=== PATIENT | female | born 2005 | race Caucasian/White ===

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

== ENCOUNTER 2023-05-24 16:45 | Emergency (ER) | payer OTHER, SELFPAY ==
--- NOTE | ~2023-05-24 | CT_ITS ---
EXAMINATION: CT abdomen pelvis w con INDICATION: Epigastric and right upper quadrant pain TECHNIQUE: Computed tomographic images of the abdomen and pelvis were obtained after the administrati on of 100 cc of Omnipaque 350 intravenous contrast. The dose-length product (DLP) was 1496.43 mGy-cm. Automated exposure control and iterative reconstruction technique were employed. COMPARISON: 11/13/2022 FINDINGS: Minimal dependent atelectasis is present in the lung bases. The heart size is normal. The l iver, spleen, gallbladder, and adrenal glands are normal. There is subtle inflammatory change in the tail of the pancreas. Cysts of the kidneys measure up to 6 mm on the left. No pathologically enlarged abdominal or pelvic lymph nodes are identified. No free intraperitoneal gas or evidence of bowel obs truction. The visualized osseous structures are unremarkable. IMPRESSION: 1. Subtle inflammatory change near the tail of the pancreas which could reflect pancreatitis but is o f unclear significance given normal lipase. Reviewed, dictated and finalized at location F. IMPRESSION: 1. Subtle inflammatory change near the tail of the pancreas which could reflect pancreatitis but is of unclear significance given normal lipase.
[2023-05-24 16:47] VITALS: BP 152/91; PULSE 79; RESP 18; TEMP 35.8; O2SAT 100
--- NOTE | 2023-05-24 16:58 | ED.ABDPAIN ---
HPI - Abdominal Pain General Chief Complaint: Abdominal Pain <NIVIA Escamilla Last Filed: 05/24/23 17:03> Stated Complaint: ABDOMEN PAIN <NIVIA Escamilla Last Filed: 05/24/23 17:03> Time Seen by Provider: 05/24/23 16:58 <NIVIA Escamilla Last Filed: 05/24/23 17:03> Focused HPI: Patient is a 17 y/o female who presents to the ED with c/o abdominal pain. Patient reports having persistent and worsening epigastric abdominal pain, radiates out to her upper abdomen bilaterally. She has tried taking omeprazole and Midol w/o relief. She has not taken anything for pain today. Reports decreased appetite, nausea, diarrhea. Denies vomiting, rectal bleeding, melena, fevers, urinary complaints. GENERAL: Well-appearing, morbidly obese with BMI 40.0, and in no acute distress. HEAD: Normocephalic, atraumatic. CHEST: Clear to auscultation. ?No respiratory distress. HEART: Regular rate and rhythm.? ABD: TTP in epigastric region and RUQ NEURO: ?Alert and oriented x3. Patient screened in triage and initial orders placed.? ?Additional care and disposition to be based upon?diagnostic testing and treatment. <NIVIA Escamilla Last Filed: 05/24/23 17:03> Source: patient <NIVIA Escamilla Last Filed: 05/24/23 17:03> Mode of arrival: ambulatory <NIVIA Escamilla Last Filed: 05/24/23 17:03> Limitations: no limitations <NIVIA Escamilla Last Filed: 05/24/23 17:03> Related Data Home Medications: Home Medications Medication Instructions Recorded Confirmed norgestimate-ethinyl estradiol tablet 03/16/21 03/16/21 0.18 mg/0.215mg/0.25mg-35 mcg(28)tablet (Tri-Sprintec (28)) <NIVIA Escamilla Last Filed: 05/24/23 17:03> Allergies/Adverse Reactions: Allergies Allergy/AdvReac Type Severity Reaction Status Date / Time amoxicillin Allergy Diarrhea Verified 11/12/22 19:39 <Sierra Hinkle PA-C - Last Filed: 05/24/23 17:03> Review of Systems Review of Systems: CONSTITUTIONAL: Denies fever GASTROINTESTINAL: Reports abdominal pain, nausea, and diarrhea. Denies vomiting GENITOURINARY: Denies dysuria or hematuria. <Lakshmi Vasquez PA-C - Last Filed: 05/24/23 19:57> All systems reviewed & are unremarkable except as noted in HPI and below <Lakshmi Vasquez PA-C - Last Filed: 05/24/23 19:57> PMFSH Past Medical History Medical History: Medical History (Updated 05/24/23 @ 19:44 by Lakshmi Vasquez PA-C) Anxiety Depression <Sierra Hinkle PA-C - Last Filed: 05/24/23 17:03> Surgical History Surgical History: Surgical History History of removal of ovarian cyst History of tympanostomy tube placement <Sierra Hinkle PA-C - Last Filed: 05/24/23 17:03> Family History Family History: Family History Mother Cerebrovascular accident <Sierra Hinkle PA-C - Last Filed: 05/24/23 17:03> Social History Social History: Social History Smoking status: Never smoker Alcohol intake: never Substance use: never Substance use type: does not use Living arrangements: with family Gender identity (if verbalized by the patient): Female <Sierra Hinkle PA-C - Last Filed: 05/24/23 17:03> Exam Narrative: GENERAL: Well-appearing, well-nourished, and in no acute distress. HEAD: Normocephalic, atraumatic. EYES: EOMI. CHEST: Clear to auscultation. No respiratory distress. No wheezes rales or rhonchi HEART: Regular rate and rhythm. No murmur heard. Normal peripheral pulses. ABDOMEN: Soft, nondistended, normal active bowel sounds. Mild tenderness to palpation in the epigastrium, without guarding EXTREMITIES: Normal range of motion. No edema. SKIN: Warm, dry, no rash. NE
[2023-05-24] MEDS: BELLADONNA ALK/PHENOB ELIX 10 ML, MAG HYDROX/ALUMINUM HYD/SIMETH 30 ML, LIDOCAINE HCL 2... PO (17:21)
[2023-05-24] MEDS: ACETAMINOPHEN 500 MG TABLET 1000 MG PO (17:21)
[2023-05-24] MEDS: ONDANSETRON INJ 4 MG/2 ML VIAL IV PUSH (17:21)
[2023-05-24 17:30] LABS: Basophils Percent Auto 0.4 % (0.2-1.2); Eosinophils Absolute Auto 0.1 K/mm3 (0-0.3); Eosinophils Percent Auto 1.2 % (0-4.4); Hematocrit 40.5 % (37.0-47.0); Hemoglobin 13.8 g/dL (12.0-15.0); Immature Granulocyte Absolute 0.04 K/mm3 (0.00-0.031); Immature Granulocyte Percent A 0.4 % (0-0.5); Lymphocytes Absolute Auto 2.61 K/mm3 (0.9-3.2); Lymphocytes Percent Auto 26.6 % (18.3-44.2); Mean Corpuscular HGB Conc 34.1 g/dl (32-36); Mean Corpuscular Hemoglobin 29.5 pg (26-34); Mean Corpuscular Volume 86.5 fl (80-100); Monocytes Absolute Auto 0.7 K/mm3 (0.1-0.6); Monocytes Percent Auto 6.7 % (2.6-8.5); Neutrophils Absolute Auto 6.4 K/mm3 (1.3-6.7); Neutrophils Percent Auto 64.7 % (45.5-73.1); Platelet Count Result 246 k/mm3 (150-375); Red Blood Count 4.68 M/mm3 (4.2-5.4); Red Cell Distribution Width 13.5 % (11.5-14.5); White Blood Count 9.8 K/mm3 (4.5-10.0)
[2023-05-24 17:46] LABS: Alanine Aminotransferase 33 U/L (6-35); Albumin Level 4.5 g/dL (3.7-5.6); Alkaline Phosphatase 89 U/L (45-116); Anion Gap 9 mmol/L (8-16); Aspartate Amino Transferase 33 U/L (14-36); Bilirubin,Total 0.8 mg/dL (0.2-1.3); Blood Urea Nitrogen 9 mg/dL (8-21); Calcium 9.8 mg/dL (8.9-10.7); Carbon Dioxide 27 mmol/L (22-30); Chloride 105 mmol/L (98-107); Estimated CRCL calculation 121 ml/min; Estimated Glomerular Filt Rate > 60; Glucose 81 mg/dL (65-110); Lipase 187 U/L (23-300); Potassium 3.6 mmol/L (3.4-5.0); Sodium 141 mmol/L (134-143)
[2023-05-24 17:51] LABS: Appearance Urine Cloudy (Clear); Bacteria Urine 1+ /hpf; Bilirubin Urine Negative (Negative); Blood Urine Negative (Negative); Color Urine Dark Yellow (Yellow); Glucose Urine UA Negative (Negative); Ketones Urine Trace mg/dL (Negative); Leukocyte Esterase Ur 1+ LEU/UL (Negative); Nitrate Urine Negative (Negative); Non Pathogenic Casts 0-2; Protein Urine Negative (Negative); RBC Urine 0-2 /hpf (0-2); Specific Grav Ur 1.022 (1.001-1.035); Squamous Epithelial Cell Urine Moderate /hpf (Few); pH Urine 5.5 (5.0-9.0)
[2023-05-24 18:03] LABS: Add Urine Microscopic? YES
--- NOTE | 2023-05-24 19:23 | PC.NURSE ---
this rn assumed care of patient. this rn took patient report from STEPHANIE Galaviz.
[2023-05-24 19:43] VITALS: TEMP 36.9
[2023-05-24 20:18] VITALS: BP 117/67; PULSE 97; RESP 18; O2SAT 99
== END 2023-05-24 20:19 | disposition home or self-care (01) ==
PROVIDERS: Physician Assistant; Emergency Provider Physician Assistant; PCP Family Medicine
DX: K85.90 Acute pancreatitis without necrosis or infection, unspecified (principal); R10.13 Epigastric pain; R82.81 Pyuria; R82.71 Bacteriuria
CPT/HCPCS: 36415; 74177; 80053; 81001; 81025; 83690; 85025; 87086; 87088; 96374; 99284; A9270; J2405; Q9967

== ENCOUNTER 2023-05-25 00:59 | Emergency (ER) | payer OTHER, SELFPAY ==
[2023-05-25 01:05] VITALS: BP 135/78; PULSE 97; RESP 16; TEMP 36.1; O2SAT 98
[2023-05-25 02:17] VITALS: BP 142/102; PULSE 102; RESP 16; TEMP 36.6; O2SAT 96
[2023-05-25 02:39] LABS: Basophils Percent Auto 0.4 % (0.2-1.2); Eosinophils Absolute Auto 0.1 K/mm3 (0-0.3); Eosinophils Percent Auto 1.1 % (0-4.4); Hematocrit 41.8 % (37.0-47.0); Hemoglobin 13.8 g/dL (12.0-15.0); Immature Granulocyte Absolute 0.04 K/mm3 (0.00-0.031); Immature Granulocyte Percent A 0.4 % (0-0.5); Lymphocytes Absolute Auto 2.39 K/mm3 (0.9-3.2); Mean Corpuscular Hemoglobin 28.5 pg (26-34); Mean Corpuscular Volume 86.2 fl (80-100); Mean Platelet Volume 8.9 fl (7.4-10.4); Monocytes Absolute Auto 0.6 K/mm3 (0.1-0.6); Monocytes Percent Auto 6.6 % (2.6-8.5); Neutrophils Absolute Auto 6.4 K/mm3 (1.3-6.7); Neutrophils Percent Auto 66.5 % (45.5-73.1); Platelet Count Result 251 k/mm3 (150-375); Red Blood Count 4.85 M/mm3 (4.2-5.4); Red Cell Distribution Width 13.2 % (11.5-14.5); White Blood Count 9.6 K/mm3 (4.5-10.0)
[2023-05-25 02:44] LABS: Alanine Aminotransferase 34 U/L (6-35); Albumin Level 4.6 g/dL (3.7-5.6); Alkaline Phosphatase 85 U/L (45-116); Anion Gap 11 mmol/L (8-16); Aspartate Amino Transferase 35 U/L (14-36); Bilirubin,Total 0.9 mg/dL (0.2-1.3); Blood Urea Nitrogen 9 mg/dL (8-21); Calcium 9.9 mg/dL (8.9-10.7); Carbon Dioxide 20 mmol/L (22-30); Chloride 108 mmol/L (98-107); Estimated CRCL calculation 143 ml/min; Estimated Glomerular Filt Rate > 60; Glucose 88 mg/dL (65-110); Lipase 169 U/L (23-300); Potassium 3.9 mmol/L (3.4-5.0); Sodium 139 mmol/L (134-143)
--- NOTE | 2023-05-25 03:14 | ED.ABDPAIN ---
HPI - Abdominal Pain General Chief Complaint: Abdominal Pain Stated Complaint: vomiting, here for abd pain earlier Time Seen by Provider: 05/25/23 02:19 History of Present Illness HPI narrative: 17-year-old female presenting to the emergency department for evaluation of nausea and vomiting. Patient has been having 4 days of abdominal pain and was evaluated in the emergency department earlier in the day. After getting home patient did have onset of nausea and vomiting. Related Data Home Medications Medication Instructions Recorded Confirmed norgestimate-ethinyl estradiol tablet 03/16/21 03/16/21 0.18 mg/0.215mg/0.25mg-35 mcg(28)tablet (Tri-Sprintec (28)) Allergies Allergy/AdvReac Type Severity Reaction Status Date / Time amoxicillin Allergy Diarrhea Verified 11/12/22 19:39 Review of Systems Review of Systems: All systems reviewed & are unremarkable except as noted in HPI and below PMFSH Past Medical History Medical History (Updated 05/26/23 @ 00:01 by Myesha Marrero) Anxiety Depression Surgical History Surgical History History of removal of ovarian cyst History of tympanostomy tube placement Family History Family History Mother Cerebrovascular accident Social History Social History Smoking status: Never smoker Alcohol intake: never Substance use: never Substance use type: does not use Living arrangements: with family Gender identity (if verbalized by the patient): Female Exam Narrative: APPEARANCE: Well appearing, no pain, no distress, well-nourished. HEAD: normocephalic, atraumatic. EYES: PERRLA/EOMI, conjunctivae clear. NOSE: Normal no drainage EARS:TMS clear with good light reflex. THROAT: Pharynx clear, no exudate. NECK: Supple. No adenopathy, no masses. RESPIRATORY: Airway patent, respirations nonlabored. Clear to auscultation bilaterally, no rales, rhonchi, wheezing. CARDIOVASCULAR: Regular rate and rhythm without murmurs rubs or gallops. ABDOMINAL: Soft, nontender, nondistended, normal bowel sounds MUSCULOSKELETAL: Moves all extremities. Strength/ROM intact, No edema, No calf tenderness. NEURO: Alert. Cranial nerves II through XII intact. Good gait. Good coordination SKIN: Warm, dry. Normal Color PSYCHIATRIC: Normal affect/mood. Course Course Emergency Course: Patient felt improved treatment was provided medications for nausea control per home Vital Signs Vital signs: Vital Signs Temperature 97.0 F L 05/25/23 01:05 Pulse Rate 97 05/25/23 01:05 Respiratory Rate 16 05/25/23 01:05 Blood Pressure 135/78 05/25/23 01:05 Pulse Oximetry 98 05/25/23 01:05 Oxygen Delivery Room Air 05/25/23 01:05 Temperature 97.8 F 05/25/23 02:17 Pulse Rate 77 05/25/23 04:39 Respiratory Rate 15 05/25/23 04:39 Blood Pressure 140/76 05/25/23 04:39 Pulse Oximetry 100 05/25/23 04:39 Oxygen Delivery Room Air 05/25/23 01:05 MDM - Abdominal Pain MDM Narrative Medical decision making narrative: 17-year-old female presented emergency department for evaluation of persistent nausea and vomiting. Patient had repeat labs with no change. Patient did feel improved with treatment and on re-examination states that once again she feels fine. Patient family were updated on the results of the workup and importance of close follow-up with primary care physician. Patient was provided medications for nausea and vomiting. Differential Diagnosis Differential diagnosis: Likely abdominal pain, acute appendicitis, constipation, diverticulitis, gastroenteritis, pancreatitis and small bowel obstruction Lab Data Attestation: I reviewed the patient's lab results. 05/25/23 02:25 05/25/23 02:25 Labs: Lab Results 05/25/23 Range/Units 02:25 WBC 9.6
[2023-05-25] MEDS: SODIUM CHLORIDE 0.9% IV 1,000 ML 999 ML IV CONT (03:21)
[2023-05-25] MEDS: ONDANSETRON INJ 4 MG/2 ML VIAL IV PUSH (03:22)
[2023-05-25] MEDS: HYDROmorphone HCL INJ (*CRX) 1 MG/ML SYR 0.5 MG IV PUSH (03:22)
[2023-05-25] MEDS: METOCLOPRAMIDE HCL INJ 10 MG/2 ML VIAL IV PUSH (04:36)
[2023-05-25 04:39] VITALS: BP 140/76; PULSE 77; RESP 15; O2SAT 100
== END 2023-05-25 04:40 | disposition home or self-care (01) ==
PROVIDERS: Emergency Provider Emergency Medicine; PCP Family Medicine
DX: R11.2 Nausea with vomiting, unspecified (principal)
CPT/HCPCS: 36415; 80053; 83690; 85025; 96361; 96374; 96375; 99284; J1170; J2405; J2765; J7030

== ENCOUNTER 2023-11-19 09:24 | Emergency (ER) | payer OTHER, SELFPAY ==
--- NOTE | ~2023-11-19 | XR_ITS ---
EXAMINATION: XR chest 2V DATE: 11/19/2023 10:15 INDICATION: Shortness of breath TECHNIQUE: PA and lateral views of the chest were obtained. COMPARISON: None FINDINGS: The lungs are clear with no focal airspace opacities, pulmonary edema, pleural effusion or pneumothor ax. The cardiomediastinal silhouette is normal. Visualized bones and soft tissues are unremarkable. IMPRESSION: 1. No acute cardiopulmonary disease. Reviewed, dictated and finalized at location B.
[2023-11-19 09:26] VITALS: BP 142/92; PULSE 72; RESP 18; TEMP 36.7; O2SAT 99
[2023-11-19 10:14] LABS: Influenza A QL RT-PCR Negative (Negative); Influenza B QL RT-PCR Negative (Negative); RSV RNA, RT-PCR Negative (Negative); SARS-CoV-2 RNA PCR Negative (Negative)
--- NOTE | 2023-11-19 11:46 | ED.GENADULT ---
HPI - General Adult General Chief complaint: Shortness of Breath/Dyspnea Stated complaint: SOB Time Seen by Provider: 11/19/23 10:54 History of Present Illness HPI narrative: 18-year-old female presenting to the emergency department for evaluation for epigastric pressure and associated shortness of breath. Patient states she does have history of asthma and does smoke marijuana. Patient states she has not smoked since the symptoms started this morning. Related Data Home Medications Medication Instructions Recorded Confirmed norgestimate-ethinyl estradiol tablet 03/16/21 03/16/21 0.18 mg/0.215mg/0.25mg-35 mcg(28)tablet (Tri-Sprintec (28)) Allergies Allergy/AdvReac Type Severity Reaction Status Date / Time amoxicillin AdvReac Diarrhea Verified 11/19/23 11:48 Review of Systems Review of Systems: All systems reviewed & are unremarkable except as noted in HPI and below PMFSH Past Medical History Medical History (Updated 11/19/23 @ 12:35 by Bryson Palacios MD) Anxiety Depression Surgical History Surgical History History of removal of ovarian cyst History of tympanostomy tube placement Family History Family History Mother Cerebrovascular accident Social History Social History Smoking status: Never smoker Alcohol intake: never Substance use: never Substance use type: does not use Living arrangements: with family Gender identity (if verbalized by the patient): Female Exam Narrative: APPEARANCE: Well appearing, no pain, no distress, well-nourished. HEAD: normocephalic, atraumatic. EYES: PERRLA/EOMI, conjunctivae clear. NOSE: Normal no drainage EARS:TMS clear with good light reflex. THROAT: Pharynx clear, no exudate. NECK: Supple. No adenopathy, no masses. RESPIRATORY: Airway patent, respirations nonlabored. Clear to auscultation bilaterally, no rales, rhonchi, wheezing. CARDIOVASCULAR: Regular rate and rhythm without murmurs rubs or gallops. ABDOMINAL: Epigastric tenderness to palpation MUSCULOSKELETAL: Moves all extremities. Strength/ROM intact, No edema, No calf tenderness. NEURO: Alert. Cranial nerves II through XII intact. Good gait. Good coordination SKIN: Warm, dry. Normal Color Course Vital Signs Vital signs: Vital Signs Temperature 98.0 F 11/19/23 09:26 Pulse Rate 72 11/19/23 09:26 Respiratory Rate 18 11/19/23 09:26 Blood Pressure 142/92 H 11/19/23 09:26 Pulse Oximetry 99 11/19/23 09:26 Oxygen Delivery Room Air 11/19/23 09:26 Temperature 97.9 F 11/19/23 12:44 Pulse Rate 80 11/19/23 12:44 Respiratory Rate 16 11/19/23 12:44 Blood Pressure 114/79 11/19/23 12:44 Pulse Oximetry 98 11/19/23 12:44 Oxygen Delivery Room Air 11/19/23 09:26 Medical Decision Making MDM Narrative Medical decision making narrative: 18-year-old female presenting to the emergency department for evaluation epigastric pain and pressure with deep inspiration. Patient is afebrile with no leukocytosis and a stable hemoglobin of 14.6. No acute abnormalities on his CMP was normal kidney function, patient has no elevation of AST ALT alk-phos or lipase. Patient was negative for influenza RSV and for COVID. Chest x-ray shows no acute cardiopulmonary abnormality. Differential Diagnosis Differential Diagnosis: Pneumonia, P, COVID, RSV, influenza Vital Signs Vital Signs: Vital Signs Temperature 98.0 F 11/19/23 09:26 Pulse Rate 72 11/19/23 09:26 Respiratory Rate 18 11/19/23 09:26 Blood Pressure 142/92 H 11/19/23 09:26 Pulse Oximetry 99 11/19/23 09:26 Oxygen Delivery Room Air 11/19/23 09:26 Temperature 97.9 F 11/19/23 12:44 Pulse Rate 80 11/19/23 12:44 Respiratory Rate 16 11/19/23 12:44 Blood Pressure 114/79 11/19/23 12:44 Pulse Oxime
[2023-11-19 11:50] VITALS: PULSE 84; RESP 18
[2023-11-19] MEDS: ALBUTEROL SULFATE NEB 2.5 MG/3 ML INH INHALATION (11:50)
[2023-11-19] MEDS: BELLADONNA ALK/PHENOB ELIX 10 ML, MAG HYDROX/ALUMINUM HYD/SIMETH 30 ML, LIDOCAINE HCL 2... PO (11:54)
[2023-11-19 11:59] VITALS: PULSE 82; RESP 18
[2023-11-19 12:17] LABS: Basophils Absolute Auto 0.1 K/mm3 (0.0-0.1); Basophils Percent Auto 0.6 % (0.2-1.2); Eosinophils Absolute Auto 0.4 K/mm3 (0-0.3); Eosinophils Percent Auto 4.8 % (0-4.4); Hematocrit 43.8 % (37.0-47.0); Hemoglobin 14.6 g/dL (12.0-15.0); Immature Granulocyte Absolute 0.02 K/mm3 (0.00-0.031); Immature Granulocyte Percent A 0.2 % (0-0.5); Lymphocytes Absolute Auto 2.54 K/mm3 (0.9-3.2); Lymphocytes Percent Auto 29.3 % (18.3-44.2); Mean Corpuscular HGB Conc 33.3 g/dl (32-36); Mean Corpuscular Hemoglobin 29.3 pg (26-34); Mean Platelet Volume 8.8 fl (7.4-10.4); Monocytes Absolute Auto 0.5 K/mm3 (0.1-0.6); Monocytes Percent Auto 6.1 % (2.6-8.5); Neutrophils Absolute Auto 5.1 K/mm3 (1.3-6.7); Platelet Count Result 231 k/mm3 (150-375); Red Blood Count 4.98 M/mm3 (4.2-5.4); Red Cell Distribution Width 13.6 % (11.5-14.5); White Blood Count 8.7 K/mm3 (4.5-10.0)
[2023-11-19 12:27] LABS: Alanine Aminotransferase 28 U/L (6-35); Albumin Level 4.7 g/dL (3.5-5.1); Alkaline Phosphatase 73 U/L (38-126); Anion Gap 12 mmol/L (4-12); Aspartate Amino Transferase 30 U/L (14-36); Bilirubin,Total 0.4 mg/dL (0.2-1.3); Blood Urea Nitrogen 13 mg/dL (7-17); Calcium 9.3 mg/dL (8.4-10.2); Carbon Dioxide 25 mmol/L (22-30); Chloride 104 mmol/L (98-107); Estimated CRCL calculation 138 ml/min; Estimated Glomerular Filt Rate > 60; Glucose 94 mg/dL (65-110); Lipase 61 U/L (23-300); Potassium 4.4 mmol/L (3.4-5.0); Sodium 141 mmol/L (137-145)
[2023-11-19 12:44] VITALS: BP 114/79; PULSE 80; RESP 16; TEMP 36.6; O2SAT 98
== END 2023-11-19 12:47 | disposition home or self-care (01) ==
PROVIDERS: Emergency Provider Emergency Medicine; PCP Family Medicine
DX: R10.13 Epigastric pain (principal); Z20.822 Contact with and (suspected) exposure to COVID-19; Z79.3 Long term (current) use of hormonal contraceptives; Z79.899 Other long term (current) drug therapy
CPT/HCPCS: 36415; 71046; 80053; 83690; 85025; 87637; 94640; 99283; A9270

== ENCOUNTER 2025-01-12 17:02 | Emergency (ER) | payer SELFPAY ==
--- NOTE | ~2025-01-12 | CT_ITS ---
CT abdomen pelvis wo con INDICATION:L sided flank/abd pain . COMPARISON: None. TECHNIQUE: Axial 2.5 mm images of the abdomen were obtained without IV or oral contrast. Diagnostic sensitivity is limited due to lack of IV contrast. FINDINGS: Groundglass and interstitial opacities are present at the lung bases. The liver parenchyma is unremarkable. No intrahepatic mass or ductal dilatation is evident. The gallbladder is unremarkable. The pancreas and spleen are normal in appearance. The adrenal glands are symmetric in size. There is mild left hydronephrosis and hydroureter secondary to a 3 mm stone at the ureterovesicular junction. Punctate nonobstructive left intrarenal stones noted. Right kidney is unremarkable. Evaluation of the stomach and bowel loops are limited due to lack of oral contrast. The appendix is not visualized however no secondary signs of appendicitis are identified. The bladder and rectum are normal. The uterus and both adnexa are unremarkable. No free intraperitoneal fluid or air is evident. There is no significant retroperitoneal lymphadenopathy. The aorta, visceral vessels and renal arteries demonstrate normal caliber. The lower thoracic and lumbar vertebrae are in normal alignment. IMPRESSION: Mild left hydronephrosis secondary to a 3 mm stone at the UVJ. All CT scans at this facility are performed using low dose modulation techniques as appropriate to perform exam including the following: automated exposure control; use of iterative reconstruction technique; adjustment of the mA and/or kV according to patient size (this includes techniques or standardized protocols for targeted exams where dose is matched to indication/reason for exam). Reviewed, dictated and finalized at location [facility] IMPRESSION: Mild left hydronephrosis secondary to a 3 mm stone at the UVJ. All CT scans at this facility are performed using low dose modulation techniqu es as appropriate to perform exam including the following: automated exposure c ontrol; use of iterative reconstruction technique; adjustment of the mA and/or kV according to patient size (this includes techniques or standardized protocol s for targeted exams where dose is matched to indication/reason for exam).
--- NOTE | ~2025-01-12 | US_ITS ---
US pelvic complete w TV INDICATION: LLQ/pelvic pain . COMPARISON: None. TECHNIQUE: Transvaginal due to ultrasound of the pelvis was performed. FINDINGS: The uterus measures 7 x 2.6 x 3.2 cm. It demonstrates normal echotexture and contour. The endometrial stripe measures 5.3 mm. The right ovary measures 5.2 x 2.8 x 2.3 cm. The left ovary measures 3.5 x 2.6 x 2 cm. Multiple follicles are present bilaterally. There is echogenic shadowing foci in the left kidney may represent calcification. Trace fluid is seen in adjacent to the left ovary. Visualized portions of the bladder are normal. Simmons scale, color Doppler, and spectral waveform analysis of the ovaries was performed. There is symmetric arterial and venous flow bilaterally. Impression: Normal bilateral ovarian Doppler. No evidence of ovarian torsion. IMPRESSION: Multiple follicles bilaterally. There is trace fluid adjacent to the left ovary. There is no free fluid in the cul-de-sac. Reviewed, dictated and finalized at location [facility] Impression: Normal bilateral ovarian Doppler. No evidence of ovarian torsion. IMPRESSION: Multiple follicles bilaterally. There is trace fluid adjacent to the left ovary . There is no free fluid in the cul-de-sac.
[2025-01-12 17:04] VITALS: BP 141/92; PULSE 83; RESP 20; TEMP 36.2; O2SAT 100
--- OUTSIDE RECORDS SUMMARY | 2025-01-12 17:04 | XMS_ITS | Encounter Summary ---
Author Organization [facility] Address [address] [place] [address] Care Team Providers Care Shift Foreman Name Role Phone Jovanna Villarreal MD Primary Care Provider [phone] Encounter Details Date Type Department Care Team (Late st Contact Info) Description 11/13/2021 [employer] Message Enc [facility] Medical Group Family & Internal Medicine [address] [address] [email or web address], [facility] Provider labs Social History Tobacco Use Types Packs/Day Years Used Date Smoking Tobacco: Never Smokeless Tobacco: Never Alcohol Use Standard Drinks/Week Comments Never 0 (1 standard drink = 0.6 oz pur e alcohol) PHQ-2 Answer Date Recorded PHQ-2 Score - If the patient scores above 3, please move on to questions 3-9 2 10/30/2021 Comments No Sex and Gender Information Value Date Recorded Sex Assigned at Female 04/23/2024 10:01 AM EMT DRIVER Legal Sex Female 6:37 PM CDT Gender Identity Not on file Sexual Orientation Not on file COVID-19 Exposure Response Date Recorded In the last 10 days, have yo u been in contact with someone who was confirmed or suspected to have Coronavirus/COVID-19? No / Unsure 11/09/2021 12:49 PM CDT documented as of this encounter Plan of Treatment Not on file documented as of this encounter Visit Diagnoses Not on filedocumented in this encounter Additional Health Concerns Infection Onset Date Last Indicated Resolved Time COVID-19 Rule Out 11/25/2021 11/25/2021 11/25/2021 6:40 PM CDT COVID-19 Rule Out 07/26/2022 07/26/2022 07/26/2022 8:28 AM CDT COVID-19 Rule Out 11/28/2022 11/28/2022 11/28/2022 8:01 AM CDT COVID-19 Rule Out 02/11/2024 02/11/2024 02/11/2024 1:40 PM EMT DRIVER COVID-19 Rule Out 04/11/2024 04/11/2024 04/11/2024 6:07 PM EMT DRIVER Respiratory Rule Out 04/29/2024 04/29/2024 025 9:15 AM EMT DRIVER Assessment Noted Time PHQ-9 Depression Total Score: 10 022 8:54 AM CDT documented as of this encounter Care Teams Shift Foreman Relationship Specialty [place] [address] [facility] [address]. [address] [place] [address] PCP - General FAMILY PRACTICE 10/30/21 documented as of this encounter
--- OUTSIDE RECORDS SUMMARY | 2025-01-12 17:04 | XMS_ITS | Encounter Summary ---
Author Organization [facility] Address [address] [place] [address] Care Team Providers Care Slot Host Name Role Phone Jovanna Villarreal MD Primary Care Provider [phone] Encounter Details Date Type Department Care Team (Late st Contact Info) Description 11/07/2021 [employer] Message Enc [facility] Medical Group Family & Internal Medicine [address] [address] [employer], [facility] Provider results Social History Tobacco Use Types Packs/Day Years [...] Sex Assigned at Female 04/23/2024 10:01 AM BACK HOE OPERATOR Legal Sex Female 6:37 PM CDT Gender [...] Rule Out 02/11/2024 02/11/2024 02/11/2024 1:40 PM BACK HOE OPERATOR COVID-19 Rule Out 04/11/2024 04/11/2024 04/11/2024 6:07 PM BACK HOE OPERATOR Respiratory Rule Out 04/29/2024 04/29/2024 025 9:15 AM BACK HOE OPERATOR Assessment Noted Time PHQ-9 Depression Total Score: 10 022 8:54 AM CDT documented as of this encounter Care Teams Slot Host Relationship Specialty [place] [address] [facility] [address] [place] [address] PCP - General FAMILY PRACTICE 10/30/21 documented as of this encounter
--- OUTSIDE RECORDS SUMMARY | 2025-01-12 17:05 | XMS_ITS | Encounter Summary ---
Author Organization [facility] Address [address] [place] [address] Care Team Providers Care Certified Vehicle Fire Investigator Name Role Phone Jovanna Villarreal MD Primary Care Provider [phone] Encounter Details Date Type Department Care Team (Late st Contact Info) Description 05/10/2022 [employer] Message Enc [facility] Medical Group Family & Internal Medicine [address] [address] [place], [facility] Provider results Social History Tobacco Use Types Packs/Day Years Used Date Smoking Tobacco: Never Smokeless Tobacco: Never Alcohol Use Standard Drinks/Week Comments Never 0 (1 standard drink = 0.6 oz pur e alcohol) PHQ-2 Answer Date Recorded Patient Health Questionnaire-2 Score 0 03/16/2022 Comments No Sex and Gender Information Value Date Recorded Sex Assigned at Female 04/23/2024 10:01 AM PREPARED FOODS TEAM LEADER Legal Sex Female 6:37 PM CDT Gender Identity Not on file Sexual Orientation Not on file COVID-19 Exposure Response Date Recorded In the last 10 days, have yo u been in contact with someone who was confirmed or suspected to have Coronavirus/COVID-19? No / Unsure 05/07/2022 9:30 AM PREPARED FOODS TEAM LEADER documented as of this encounter Plan of Treatment Not on file documented as of this encounter Visit Diagnoses Not on filedocumented in this encounter Additional Health Concerns Infection Onset Date Last Indicated Resolved Time COVID-19 Rule Out 07/26/2022 07/26/2022 07/26/2022 8:28 AM CDT COVID-19 Rule Out 11/28/2022 11/28/2022 11/28/2022 8:01 AM CDT COVID-19 Rule Out 02/11/2024 02/11/2024 02/11/2024 1:40 PM PREPARED FOODS TEAM LEADER COVID-19 Rule Out 04/11/2024 04/11/2024 04/11/2024 6:07 PM PREPARED FOODS TEAM LEADER Respiratory Rule Out 04/29/2024 04/29/2024 025 9:15 AM PREPARED FOODS TEAM LEADER Assessment Noted Time PHQ-9 Depression Total Score: 11 022 7:11 AM PREPARED FOODS TEAM LEADER documented as of this encounter Care Teams Certified Vehicle Fire Investigator Relationship Specialty Start [place] [address] [facility]. [address] [place] [address] PCP - General FAMILY PRACTICE 10/30/21 documented as of this encounter
--- OUTSIDE RECORDS SUMMARY | 2025-01-12 17:05 | XMS_ITS | Clinical Summary ---
Author Organization [facility] Address [address] [place] [address] Care Team Providers Care Manager Steel Name Role Phone Lexie Peterson MD Primary Care Provid er Allergies Active Allergy Reactions Criticality Noted Date Comments Amoxicillin Diarrhea Low 05/26/2023 Medications aluminum-magnes ium hydroxide-simet hicone (MAALOX) suspension 200-200-20 mg/5 mL Take 10 mL by mouth every 4 (four) hours as needed for heartburn, indigestion or cramping 354 mL 4 Active prochlorperazin e (COMPAZINE) 10 mg tablet Take 1 tablet (10 mg total) by mouth every 6 (six) hours as needed for nausea or vomiting 10 tablet 4 Active Surgical History Surgery Date Site/Laterality Comments TYMPANOSTOMY TUBE PLACEMENT OVARIAN CYST REMOVAL Medical History Medical History Date Comments PCOS (polycystic ovarian syndrome) Social History Tobacco Use Types Packs/Day Years Used Date Smoking Tobacco: Unknown Personal Safety Answer Date Recorded Have you ever been in or are you currently in a harmful physical or emotional relationship or is someone making you feel afraid or unsafe? Denies 05/26/2023 Comments No Sex and Gender Information Value Date Recorded Sex Assigned at Not on file Legal Sex Female 11:54 PM FERMENTER Gender Identity Not on file Sexual Orientation Not on file Last Filed Vital Signs Vital Sign Reading Time Taken Comments Blood Pressure 114/72 05/26/2023 2:30 PM CDT Pulse 82 05/26/2023 2:30 PM CDT Temperature 36.4 C (97.6 F) 05/26/2023 10:10 AM CDT Respiratory Rate 18 05/26/2023 10:10 AM CDT Oxygen Saturation 98% 05/26/2023 2:30 PM CDT Inhaled Oxygen Concentration - - Weight 117.9 kg (260 lb) 05/26/2023 10:10 AM CDT Height 165.1 cm (5' 5) 05/26/2023 10:10 AM CDT Body Mass Index 43.27 05/26/2023 10:10 AM CDT Plan of Treatment Health Maintenance Due Date Last Done Comments Cervical Cancer Screening 2003 Depression Screening 2003 Hepatitis C Screening 2003 Meningococcal B Vaccine (1 o f 2 - Standard) 2019 Regular Well Visit/Exam 18-64 08/31/2021 DTaP/Tdap/Td Vaccine (7 - Td or Tdap) 09/23/2023 09/22/2013, 2007, 02/16/2005, Additional history exists Influenza Vaccine (#1) 2024 , 12/28/2020, 01/09/2019, Additional history exists Hepatitis B Screening Completed 09/06/2004 , 2003, 2003, Additional history exists Pneumococcal vaccine <65 Completed 005, 03/31/2004, 03/01/2004, Additional history exists Varicella Vaccines Completed 2007, 09/06/2004 HPV Vaccines Completed 04/21/2014, 11/03, 09/22/2013 Meningococcal Vaccine Completed 09/26/2019, 015 Insurance [facility] Care Teams Manager Steel Relationship Specialty Start Date End Date Lexie Peterson MD [facility] [place] [address] PCP - General Pediatrics 03/14/21
--- OUTSIDE RECORDS SUMMARY | 2025-01-12 17:05 | XMS_ITS | Encounter Summary ---
Author Organization [facility] Address [address] [place] [address] Care Team Providers Care Lead Python Developer Name Role Phone Jovanna Villarreal MD Primary Care Provider [phone] Encounter Details Date Type Department Care Team (Late st Contact Info) Description 01/30/2022 Co-Work Message Enc [facility] Medical Group Family & Internal Medicine [address] [address] [place], [facility] Provider results Social History Tobacco Use Types Packs/Day Years Used Date Smoking Tobacco: Never Smokeless Tobacco: Never Alcohol Use Standard Drinks/Week Comments Never 0 (1 standard drink = 0.6 oz pur e alcohol) PHQ-2 Answer Date Recorded PHQ-2 Score - If the patient scores above 3, please move on to questions 3-9 2 01/15/2022 Comments No Sex and Gender Information Value Date Recorded Sex Assigned at Female 04/23/2024 10:01 AM WOOD WINDOW AND DOOR CRAFTSMAN Legal Sex Female 6:37 PM CDT Gender Identity Not on file Sexual Orientation Not on file COVID-19 Exposure Response Date Recorded In the last 10 days, have yo u been in contact with someone who was confirmed or suspected to have Coronavirus/COVID-19? No / Unsure 01/15/2022 7:05 AM WOOD WINDOW AND DOOR CRAFTSMAN documented as of this encounter Plan of Treatment Not on file documented as of this encounter Visit Diagnoses Not on filedocumented in this encounter Additional Health Concerns Infection Onset Date Last Indicated Resolved Time COVID-19 Rule Out 07/26/2022 07/26/2022 07/26/2022 8:28 AM CDT COVID-19 Rule Out 11/28/2022 11/28/2022 11/28/2022 8:01 AM CDT COVID-19 Rule Out 02/11/2024 02/11/2024 02/11/2024 1:40 PM WOOD WINDOW AND DOOR CRAFTSMAN COVID-19 Rule Out 04/11/2024 04/11/2024 04/11/2024 6:07 PM WOOD WINDOW AND DOOR CRAFTSMAN Respiratory Rule Out 04/29/2024 04/29/2024 025 9:15 AM WOOD WINDOW AND DOOR CRAFTSMAN Assessment Noted Time PHQ-9 Depression Total Score: 11 022 7:11 AM WOOD WINDOW AND DOOR CRAFTSMAN documented as of this encounter Care Teams Lead Python Developer Relationship Specialty [place] [address] [facility] [address] [place] [address] PCP - General FAMILY PRACTICE 10/30/21 documented as of this encounter
--- OUTSIDE RECORDS SUMMARY | 2025-01-12 17:05 | XMS_ITS | Patient Health Record ---
Author Organization [facility] Address [address] [place] [address] Care Team Providers Care Locomotive Inspector Name Role Phone Radha Morris Primary Care Provider Allergies No Known Allergies Reason For Referral No Information Medications Medication SIG (Take, Route, Frequency, Duration) Notes Start Date End Date Status Naproxen 500 MG 1 tablet with food o r milk as needed Orally every 12 hrs; Duration: 30 days 09/12/2021 Active Escitalopram Oxalate 20 MG 1 tablet Oral ly Once a day; Duration: 30 day(s) Active Social History Tobacco Use: Social History Observation Description Date Details (start date - stop date) Never Smoker NA - NA Sex Assigned At : Social History Observation Description Sex Assigned At Female Dont use, Tobacco Use/Smoking Question Answer Notes Are you a nonsmoker Problems Problem Type SNOMED Code ICD Code Onset Dates Problem Status W/U Status Risk Notes Problem Morbid obesity (disorder) (860312386) Morbid (severe) obesity due to excess calories (E66.01) Active confirmed Problem Back pain (671847796) Back pain (M54.9) Active confirmed Problem Irregular menstruation (82270992) Abnormal menstrual periods (N92.6) Active confirmed Plan Of Treatment No Information Insurance Providers Payer Name Payer Address Payer Phone Subscriber Number Group Number Insured Name Patient Relationship to Insured Coverage Start Date Coverage End Date [employer] [address] [place] [phone] [id number] Rylie El Self - patient is the insured [employer] [address] [place] [phone] [id number] Rylie El Self - patient is the insured 2 Medical (General) History Medical History History ICD Code Ovarian cyst Fatty liver Back pain Surgical History Surgery Date(Month/Year) Nasal cauterizatuon Tubes in years, replaced yearly- doesn't currently have tubes Adenoidectomy Hospitalization History Reason Date(Month/Year)
--- OUTSIDE RECORDS SUMMARY | 2025-01-12 17:05 | XMS_ITS | Encounter Summary ---
Author Organization [facility] Address [address] [place] [address] Care Team Providers Care Head Of Research & Insights Name Role Phone Jovanna Villarreal MD Primary Care Provider [phone] Encounter Details Date Type Department Care Team (Late st Contact Info) Description 05/31/2022 [employer] Message Enc [facility] Medical Group Family & Internal Medicine [address] [phone] [place], [facility] Provider referral Social History Tobacco Use Types Packs/Day Years Used Date Smoking Tobacco: Never Smokeless Tobacco: Never Alcohol Use Standard Drinks/Week Comments Never 0 (1 standard drink = 0.6 oz pur e alcohol) PHQ-2 Answer Date Recorded Patient Health Questionnaire-2 Score 0 03/16/2022 Comments No Sex and Gender Information Value Date Recorded Sex Assigned at Female 04/23/2024 10:01 AM ELEMENTARY INSTRUCTIONAL COACH Legal Sex Female 6:37 PM CDT Gender Identity Not on file Sexual Orientation Not on file COVID-19 Exposure Response Date Recorded In the last 10 days, have yo u been in contact with someone who was confirmed or suspected to have Coronavirus/COVID-19? No / Unsure 05/07/2022 9:30 AM ELEMENTARY INSTRUCTIONAL COACH documented as of this encounter Plan of Treatment Not on file documented as of this encounter Visit Diagnoses Not on filedocumented in this encounter Additional Health Concerns Infection Onset Date Last Indicated Resolved Time COVID-19 Rule Out 07/26/2022 07/26/2022 07/26/2022 8:28 AM CDT COVID-19 Rule Out 11/28/2022 11/28/2022 11/28/2022 8:01 AM CDT COVID-19 Rule Out 02/11/2024 02/11/2024 02/11/2024 1:40 PM ELEMENTARY INSTRUCTIONAL COACH COVID-19 Rule Out 04/11/2024 04/11/2024 04/11/2024 6:07 PM ELEMENTARY INSTRUCTIONAL COACH Respiratory Rule Out 04/29/2024 04/29/2024 025 9:15 AM ELEMENTARY INSTRUCTIONAL COACH Assessment Noted Time PHQ-9 Depression Total Score: 11 022 7:11 AM ELEMENTARY INSTRUCTIONAL COACH documented as of this encounter Care Teams Head Of Research & Insights Relationship Specialty [place] [address] [facility]. [address] [place] [address] PCP - General FAMILY PRACTICE 10/30/21 documented as of this encounter
--- OUTSIDE RECORDS SUMMARY | 2025-01-12 17:05 | XMS_ITS | Clinical Summary ---
Author Organization [facility] Address [address] [place] [address] Care Team Providers Care Household Appliance Repairer Name Role Phone Jovanna Villarreal MD Primary Care Provider [phone] Allergies Active Allergy Reactions Criticality Noted Date Comments Amoxicillin Diarrhea 07/26/2022 Medications fluticasone propionate (FLONASE) 50 MCG/ACT nasal sprayIndications:N on-recurrent acute serous otitis media of both ears SPRAY 1 SPRAY BY NASAL ROUTE EVERY DAY 16 mL 5 06/26/19 25 Active Additional Information Patient not taking.Reported on 08/05/2024 atorvastatin (LIPITOR) 40 MG tabletIndications: Mixed hyperlipidemia Take 1 tablet (40 mg total) by mouth nightly at bedtime. 90 tablet 3 08/06/19 25 Active propranolol (INDERAL) 10 MG tabletIndications: Anxiety and depression,Situati onal anxiety Take 1 tablet (10 mg total) by mouth 3 (three) times daily as needed. 90 tablet 1 08/06/19 25 Active norethindrone-ethi nyl estradiol (AUROVELA FE 03/23) 1-20 MG-MCG tabletIndications: PCOS (polycystic ovarian syndrome) Take 1 tablet by mouth daily. 84 tablet 3 08/06/19 25 Active Active Problems Problem Noted Date Diagnosed Date History of suicidal ideation 04/23/2024 Chronic middle ear effusion 02/11/2024 Epistaxis 02/11/2024 Hearing loss 02/11/2024 Irregular menstruation 02/11/2024 Nasal congestion 02/11/2024 Backache 02/11/2024 Morbid obesity 02/11/2024 History of prediabetes 03/18/2023 Mixed hyperlipidemia 03/18/2023 Amenorrhea 03/18/2023 Chronic diarrhea 08/31/2022 Overview (08/31/2022): Added automatically from request for surgery [id number] Chronic left-sided low back pain 05/07/2022 Vocal cord dysfunction 02/09/2019 Abdominal pain, left lower quadrant 01/31/2019 Cyst of left ovary 01/31/2019 Torsion of paratubal cyst 01/02/2019 Overview (02/11/2024): L/S left 18 cm torsed paratubal cyst. Cystectomy and partial salpingectomy with cautery of remaining left tube performed Chronic pain of left knee 10/14/2014 Effusion of left knee 10/14/2014 Vitamin D deficiency 09/08/2014 JOHN positive 09/02/2014 Pain in joint 09/02/2014 Sacroiliac pain 09/02/2014 Acquired hypothyroidism 08/23/2014 Resolved Problems Problem Noted Date Diagnosed Date Resolved Date Abdominal pain, unspecified abdominal location 08/31/2022 03/18/2023 Overview (08/31/2022): Added automatically from request for surgery [id number] Immunizations Immunization Administration Dates Next Due Afluria 6-35 months (pre-hernandez led syringe IIV4) 03/31/2004,03/01/2004 COVID-19 Vaccine (Generic) 10/30/2021(Deferred: Patient Refused) DTaP (Daptacel) 02/16/2005 Dtap 2007, 5,03/01/2004,2003,2003 Dtap (Generic) 02/16/2005 Fluzone 6 Months+ Quad (0.5 mL Prefilled Syringe) 01/15/2022 H1N1 2009 Influenza Vaccine 11/30/2013 H1N1 Intranasal 2009 Influenza 11/30/2013 HPV4 (Gardasil) 04/21/2014,11/30/2013,09/22/2013 Hepatitis A (Generic) 08/27/2005,08/27/2005 Hepatitis A (Havrix [address]) 04/19/2006 Hepatitis B Pediatric 2003 Hib-Hepatitis B (Comvax) 09/06/2004,2003,0 2003 Influenza (Generic) 01/09/2019, 9,12/03/2016,2015,12/28/2014,11/29/2008,03/31/2004,1 2003 Influenza Adult (Generic) 12/28/2020,10/2018,12/03/2016,2015,12/28/2014,11/29/2008 Influenza Peds (Generic) 03/31/2004,03/01/2004 MMR 2007,09/06/2004 Menactra 09/26/2019,12/28/2014 Pneumococcal (Prevnar 7) 09/06/2004,03/05,03/01/2004,2003,2003 Polio IPV (Ipol) 2007, 4,2003,2003 Tdap (Generic) 09/22/2013 Varicella (Varivax) 2007,09/06/2004 Family History Medical History Relation Comments Colon Cancer Mother Diabetes Mother Relation Status Comments Father Alive Maternal Grandmother Mother Alive Social History Tobacco Use Types Packs/Day Years Used Date Smoking Tobacco: Never Passive Smoke Exposure: Never Smokeless Tobacco: Never Tobacco Cessation:Counseling Given: No Alcohol Use Standard Drinks/Week Comments Never 0 (1 standard drink = 0.6 oz pur e alcohol) PHQ-2 Answer Date Recorded Patient Health Questionnaire-2 Score 0 04/29/2024 Comments No Sex and Gender Information Value Date Recorded Sex Assigned at Female 04/23/2024 10:01 AM REPAIR ELECTRIC MOTOR ASSEMBLER Legal Sex Female 6:37 PM CDT Gender Identity Not on file Sexual Orientation Not on file Last Filed Vital Signs Vital Sign Reading Time Taken Comments Blood Pressure 126/83 08/05/2024 4:47 PM CDT Pulse 102 08/05/2024 5:06 PM CDT Temperature 36.3 C (97.3 F) 08/05/2024 4:47 PM CDT Respiratory Rate 18 08/05/2024 4:47 PM CDT Oxygen Saturation 94% 08/05/2024 4:47 PM CDT Inhaled Oxygen Concentration - - Weight 113.4 kg (250 lb) 08/05/2024 4:47 PM CDT Height 165.1 cm (5' 5) 08/05/2024 4:47 PM CDT Body Mass Index 41.6 08/05/2024 4:47 PM CDT Plan of Treatment Health Maintenance Due Date Last Done Comments Annual Physical 08/31/2006 Meningococcal B Vaccine (1 of 2 - Standard) 2019 Cervical Cancer Screening Pap Smear (Age 21 to 29) Every 3 Years 01/31/2022 01/31/2019 Cervical Cancer Screening 01/31/2022 DTaP, Tdap and Td Vaccines (7 - Td or Tdap) 09/23/2023 09/22/2013, 2007, 02/16/2005, Additional history exists COVID-19 Vaccine ( season) 2024 Influenza Adult (#1) 2024 01/15/2022, 12/28/2020, 01/09/2019, Additional history exists Hepatitis B Vaccines Completed 09/06/2004, 2003, 2003, Additional history exists Pneumococcal Vaccine: Pediatrics (0 to 5 Years) and At-Risk Patients (6 to 49 Years) Aged Out 09/06/2004, 03/31/2004, 03/01/2004, Additional history exists No longer eligible based on patient's age to complete this topic Hepatitis A Vaccines Completed 04/19/2006, 08/27/2005, 08/27/2005 HPV Vaccines Completed 04/21/2014, 11/03, 09/22/2013 Meningococcal Vaccine Completed 09/26/2019, 015 Hepatitis C Completed 06/01/2021 PHQ-2 (Physician [place]) Completed 04/29/2024 RSV Immunizations Under 20 Months Aged Out No longer eligible based on patient's age to complete this topic Insurance [employer] Care Teams Household Appliance Repairer Relationship Specialty [place] [address] [address] [place] [phone] PCP - General FAMILY PRACTICE 10/30/21
--- OUTSIDE RECORDS SUMMARY | 2025-01-12 17:20 | XMS_ITS | Encounter Summary ---
Author Organization [facility] Address [address] [place] [address] Care Team Providers Care V Belt Coverer Name Role Phone Jovanna Villarreal MD Primary Care Provider [phone] Encounter Details Date Type Department Care Team (Late st Contact Info) Description 10/26/2022 [employer] Message Enc [facility] Medical Group Family & Internal Medicine [facility] [id number] [place] [phone] Jovanna Vill[place] [id number] [place] [address]. [address] [place] [address] [employer] Social History Tobacco Use Types Packs/Day Years Used Date Smoking Tobacco: Never Passive Smoke Exposure: Never Smokeless Tobacco: Never Alcohol Use Standard Drinks/Week Comments Never 0 (1 standard drink = 0.6 oz pur e alcohol) PHQ-2 Answer Date Recorded Patient Health Questionnaire-2 Score 0 10/26/2022 Comments No Sex and Gender Information Value Date Recorded Sex Assigned at Female 04/23/2024 10:01 AM ASSOCIATE PROFESSOR OF LITERACY Legal Sex Female 6:37 PM CDT Gender Identity Not on file Sexual Orientation Not on file documented as of this encounter Functional Status * Over the past 2 weeks, how often have you been bothered by any of the following problems? Question Answer Date of Assessment Author Status Little interest or pleasure in doing things Not at all 10/26/2022 10:13 AM DANIELT Hanh Kothari MA Active Feeling down, depressed, or hopeless Not at all 10/26/2022 10:13 AM CDT Dustin Kothari MA Active Patient Health Questionnaire-2 Score 0 10/26/2022 10:13 AM DANIELT Ban Kothari MA Active documented as of this encounter Plan of Treatment Not on file documented as of this encounter Visit Diagnoses Not on filedocumented in this encounter Additional Health Concerns Infection Onset Date Last Indicated Resolved Time COVID-19 Rule Out 11/28/2022 11/28/2022 11/28/2022 8:01 AM CDT COVID-19 Rule Out 02/11/2024 02/11/2024 02/11/2024 1:40 PM ASSOCIATE PROFESSOR OF LITERACY COVID-19 Rule Out 04/11/2024 04/11/2024 04/11/2024 6:07 PM ASSOCIATE PROFESSOR OF LITERACY Respiratory Rule Out 04/29/2024 04/29/2024 025 9:15 AM ASSOCIATE PROFESSOR OF LITERACY Assessment Noted Time PHQ-9 Depression Total Score: 11 01/15/ 022 7:11 AM ASSOCIATE PROFESSOR OF LITERACY documented as of this encounter Care Teams V Belt Coverer Relationship Specialty [place] [address] [place] [id number] PCP - General FAMILY PRACTICE 10/30/21 documented as of this encounter
--- OUTSIDE RECORDS SUMMARY | 2025-01-12 17:21 | XMS_ITS | Clinical Summary ---
Author Organization [facility] [employer] Address [address] [place] [address] Care Team Providers Care White Sugar Pan Tank Operator Name Role Phone Lexie Peterson MD Primary Care Provider Source Comments [facility] [employer],non-owned Affiliates and Associated Physician Practices is amultiple site organization consisting of ambulatory clinics and hospital sitesin [place], [place], [place] and [place]. This disclosure is being madepursuant to the Care Everywhere program and may not contain all information available regarding this patient. Last updated 17.[facility] [employer] Allergies No known active allergies Medications * Be aware that medications may not be up to date on this document. Alwaysverify current medications with the patient. citalopram (CELEXA) 10 MG tablet TAKE 1 TABLET BY MOUTH EVERY MORNING FOR 15 DAYS 2 Active hydrOXYzine HCl (ATARAX) 25 MG tablet TAKE 1 TABLET BY MOUTH EVERY NIGHT AT BEDTIME FOR 15 DAYS 2 Active hydrOXYzine pamoate (VISTARIL) 25 MG capsule TAKE 1 CAPSULE BY MOUTH EVERY NIGHT 2 Active famotidine (PEPCID) 20 MG tablet Take 20 mg by mouth 2 times daily 2 Active Alum & Mag Hydroxide-Simet h (MYLANTA MAXIMUM STRENGTH) 400-400-40 MG/5ML SUSP TAKE 10ML BY MOUTH EVERY 6 HOURS NEEDED FOR INDIGESTION. 2 Active omeprazole EC (PRILOSEC OTC) 20 MG tablet Take 1 (one) tablet by mouth daily before breakfast 30 tablet 3 2 Active hyoscyamine (LEVSIN SL) 0.125 MG sublingual tablet Dissolve 1 (one) tablet under the tongue every 4 hours as needed for Spasms 60 tablet 3 2 Active Active Problems Patient Care Coordination No te Formatting of this note migh t be different from the original. 06/01/21: patient stated that Kenna Donahue is step dad and that she has a restraining order against him. Patient requested removal of Kenna's contact from patient's chart. RN unable to confirm details of custody arrangements at this time, so contact is left in chart. Patient stated maternal grandma is attempting to obtain custody of patient and would prefer her as the primary contact - (Luciana Carey) Problem Noted Date Diagnosed Date Vocal cord dysfunction 02/09/2019 Assessment & Plan (02/09/2019 2:43 PM MACHINE DESIGNER): Assessment: Symptoms likely represent vocal cord dysfunction. The normal chest exam, normal PFT's, normal exhaled NO and description of dyspnea makes asthma much less likely. No evidence for underlying airway lesion such as a papilloma or hemangioma. I think she has features of a habit cough as well based on what she demonstrated for me. Doubt ROSE and the absence of nocturnal awakenings also suggests a combination of VCD and habit cough. Recommendation: Speech therapy referral for evaluation and training in the techniques of resistive breathing to improve these episodes and to address paradoxic vocal cord motion. I have reviewed the physiology of the larynx as it pertains to VCD, and the paradoxic motion of the vocal cords typical of this entity. If symptoms persist despite speech therapy intervention, would plan to see in follow up for further evaluation; othervwise we can be available on an as needed basis. Other considerations for evaluation might include airway evaluation by flexible bronchoscopy or chest xray. Abdominal pain, left lower quadrant 01/31/2019 Cyst of left ovary 01/31/2019 Torsion of paratubal cyst 01/02/2019 Overview (03/17/2019): L/S left 18 cm torsed paratubal cyst. Cystectomy and partial salpingectomy with cautery of remaining left tube performed Chronic pain of left knee 10/14/2014 Effusion of left knee 10/14/2014 Vitamin D deficiency 09/08/2014 Arthralgia 09/02/2014 Sacroiliac pain 09/02/2014 JOHN positive 09/02/2014 Acquired hypothyroidism 08/23/2014 Epistaxis Hearing loss Chronic middle ear effusion Nasal congestion Immunizations Immunization Administration Dates Next Due DTAP 5 PERTUSSIS ANTIGENS 02/16/2005 DTaP VACCINE IM (6wk-6yrs) 2007,,2003,11/02 HEP A PED/ADULT VACCINE 08/27/2005 HEP A PEDS 2 DOSE 04/19/2006 HEP B VACCINE, PED/ADOL 2003 HIB Hep B 09/06/2004,2003,2003 Human Papilloma Virus Adolph valent Vaccine 04/21/2014,11/30/2013,09/22/2013 INFLUENZA A Z1P5-24 VACCINE 11/30/2013 INFLUENZA VACCINE 12/02/2018 INFLUENZA VACCINE, QUADR. (F LUZONE PF QUADRIVALENT; 6-35MO), 0.25 ML (IIV4) 03/31/2004,03/01/2004 INFLUENZA VACCINE, QUADR. (F LUZONE; FLULAVAL; FLUARIX; AFLURIA QUADRIVALENT; 6MO+), 0.5 ML (IIV4) 12/28/2020,01/09/2019,12/03/2016,12/14,12/28/2014,11/29/2008 MENINGOCOCCAL ACWY (MCV4P) VAC IM 09/26/2019, MMR VACCINE 2007,09/06/2004 PNEUMOCOCCAL PCV7 CONJ, PEDS 09/06/2004, 03/01/2004,2003,11/02 POLIO IPV 2007, 4,2003,11/02 TDAP, HISTORIC VACCINE 09/22/2013 VARICELLA 2007,09/06/2004 Family History Medical History Relation Name Comments Allergic Rhinitis Brother Asthma Brother Thyroid Disease Brother Allergic Rhinitis Father Hearing Loss Maternal Uncle Psoriasis Maternal Uncle Allergic Rhinitis Mother Asthma Mother Crohn's Disease Mother uncertain dx Eczema Mother Thyroid Disease Mother Arthritis - Rheumatoid Other 1 mom's side Migraine Other 2 Anesthesia Reaction Neg Hx Bleeding Disorders Neg Hx CVA Neg Hx Cancer - Breast Neg Hx Cancer - Other Neg Hx Cancer - Skin, Melanoma Neg Hx Cancer - Skin, Non Melanoma Neg Hx Hemophilia Neg Hx Lupus Neg Hx Miscarriage Neg Hx Relation Name Status Comments Brother Father Maternal Uncle Mother Other 1 Other 2 Social History Tobacco Use Types Packs/Day Years Used Date Smoking Tobacco: Never Smokeless Tobacco: Never Alcohol Use Standard Drinks/Week Comments Never 0 (1 standard drink = 0.6 oz pur e alcohol) AUDIT-C Answer Date Recorded Frequency of Alcohol Consumption Never 01/31/2019 Average Number of Drinks Not on file 019 Frequency of Binge Drinking Not on file 01/04 Comments No Sex and Gender Information Value Date Recorded Sex Assigned at Not on file Legal Sex Female 5:43 AM MACHINE DESIGNER Gender Identity Not on file Sexual Orientation Not on file Last Filed Vital Signs Vital Sign Reading Time Taken Comments Blood Pressure 130/70 06/01/2021 8:36 AM CDT Pulse 98 02/09/2019 2:11 PM MACHINE DESIGNER Temperature 37.2 C (98.9 F) 01/31/2019 7:53 PM MACHINE DESIGNER Respiratory Rate 16 02/09/2019 2:11 PM MACHINE DESIGNER Oxygen Saturation 98% 02/09/2019 2:11 PM MACHINE DESIGNER Inhaled Oxygen Concentration - - Weight 116.3 kg (256 lb 6.3 oz) 06/19/2021 3:00 PM CDT Height 167 cm (5' 5.75) 06/19/2021 3:00 PM CDT Body Mass Index 41.7 06/19/2021 3:00 PM CDT Plan of Treatment Health Maintenance Due Date Last Done Comments HIV SCREENING 08/31/2018 MENINGOCOCCAL (Group B) VACC INE SHARED DECISION-MAKING (1 of 2 - Standard) 2019 CHLAMYDIA/GONORRHEA SCREENING 02/01/2020 01/31/2019 DTAP/TDAP/TD VACCINES (7 - T d or Tdap) 09/23/2023 09/22/2013, 2007, 02/16/2005, Additional history exists DEPRESSION SCREENING 03/04/2024 COVID-19 VACCINE ( - 2023-2 5 season) 2024 INFLUENZA VACCINE (#1) 2024 , 01/09/2019, 12/02/2018, Additional history exists ZOSTER VACCINE (1 of 2) 08/31/2053 HEPATITIS B VACCINE Completed 09/06/2004, 2003, 2003, Additional history exists HIB VACCINE Completed 09/06/2004, 12/03, 2003 PNEUMOCOCCAL VACCINE Completed 09/06/2004, 03/01/2004, 2003, Additional history exists HPV VACCINE Completed 04/21/2014, 11/03, 09/22/2013 MENINGOCOCCAL GROUPS A/C/Y/W VACCINE Completed 09/26/2019, 12/28/2014 HEPATITIS C SCREENING Completed 06/01/2021 Medical Devices Implanted Type Area Client Resolution Specialist Device Identifier Shelf Expiration Date Model / Serial / Lot Tube Vent Triune Silicon 1.35mm X 5.0mm Implanted:Qty: 2 on 08/22/2015 by Lyric Quesada MD at [facility] Bilateral: Ear [employer] 02/29/2020 [id number] / / [id number] Procedures Procedure Name Priority Date/Time Associated Diagnosis Comments HEPATITIS SCREEN ACUTE Routine 06/01/2021 9:25 AM CDT Elevated liver enzymes Epigastric pain CHLAMYDIA + GC AMPLIFIED PROBE STAT 01/31/2019 9:03 AM MACHINE DESIGNER from Last 3 Months or Most Recently Relevant to Health Maintenance Results * HEPATITIS SCREEN ACUTE (06/01/2021 9:25 AM CDT) Hepatitis A Virus Antibody IgM Non-react mary lou Non-reac tive 06/01/2021 10:43 AM CDT [facility] Hepatitis B Virus Surface Antigen Non-react mary lou Non-reac tive 06/01/2021 10:43 AM CDT [facility] Hepatitis B Core Virus Antibody IgM Non-react mary lou Non-reac tive 06/01/2021 10:43 AM CDT [facility] Hepatitis C Antibody Non-react mary lou Non-reac tive 06/01/2021 10:43 AM CDT [facility] Comment:Hepatitis C Antibody screen indicates no serologic evidence of past or current infection with Hepatitis C Virus. Patients with unexplained liver disease who are immunocompromised or suspected of having acute Hepatitis C infection may benefit from Nucleic Acid Test (TG) for Hepatitis C Viral RNA to confirm Hepatitis C status. Blood BLOOD SPECIMEN / Unknown Lab Venipuncture / Unknown 06/01/2021 9:25 AM CDT 06/01/2021 10:01 AM CDT us Abril Parikh APRN-OPERATIONS LEAD LAB - CHEMISTRY ORDERABLE S Final Result [facility] [place] [id number] [place] [address], [facility] [place] [phone] * CHLAMYDIA + GC AMPLIFIED PROBE (STL) (01/31/2019 9:03 AM MACHINE DESIGNER) Pathologist [facility] [place] Chlamydia Amplified Probe Negative Negative 02/02/2019 12:33 PM MACHINE DESIGNER [facility] GC Amplified Probe Negative Negative 02/02/2019 12:33 PM MACHINE DESIGNER [facility] Microbiology ENTIRE VAGINA / Unknown Collection / Unknown 01/31/2019 9:03 AM MACHINE DESIGNER 01/31/2019 9:09 AM MACHINE DESIGNER Narrative [facility] - 02/02/2019 12:33 PM MACHINE DESIGNER Results based on detection/no detection of ribosomal RNA by amplified method. us Isac Miller MD LAB - MICROBIOLOGY ORDERABLES Fi nal Result Performing Organization Address City/[facility] Co de Phone Number [facility] [address] [place] [address], [facility] [place] [phone] from Last 3 Months or Most Recently Relevant to Health Maintenance Insurance [facility] MEDICAID - OUT OF STATE Advance Directives * Full Code (Latest Code Status on File) Date Activated Date Inactivated Comments 01/31/2019 2:46 PM 01/31/2019 11:29 PM Care Teams White Sugar Pan Tank Operator Relationship Specialty Start Date End Date Lexie Peterson MD [address] [place] [address] PCP - General Pediatrics 06/01/21
[2025-01-12 17:52] VITALS: BP 136/78; PULSE 89; RESP 19; O2SAT 99
--- NOTE | 2025-01-12 17:56 | ED_ITS ---
HPI - Female Genitourinary General Chief complaint: MEDICAL TECHNOLOGIST PRN Stated complaint: left side pain Time Seen by Provider: 01/12/25 17:07 Source: patient Mode of arrival: ambulatory Limitations: no limitations History of Present Illness HPI Narrative: Patient is a 19-year-old female who presents the ED with report of left-sided abdominal pain. Patient reports having pain throughout her left flank, left- sided abdomen for the past couple of days. States pain became worse today and more present into her left-sided pelvic region, vaginal region. Describes a burning sensation in her vaginal region. Reports history of PCOS and states this feels similar to her previous ovarian cyst. Reports nausea and 1 episode of emesis today. Denies dysuria or hematuria, abnormal vaginal bleeding, fevers. Denies history of kidney stones. Related Data Home Medications ?Medication ?Instructions ?Recorded ?Confirmed ?Last Taken ?Type norgestimate-ethinyl estradiol tablet 03/16/21 2 Unknown History 0.18mg/0.215mg/0.25mg-0.035mg(28)tablet (Tri-Sprintec (28)) Allergies Allergy/AdvReac Type Severity Reaction Status Date / Time amoxicillin AdvReac Diarrhea Verified 01/12/25 17:03 Review of Systems 2 Review of Systems: All systems reviewed & are unremarkable except as noted in HPI. All systems reviewed & are unremarkable except as noted in HPI and below PMFSH Past Medical History Medical History Depression Anxiety Surgical History Surgical History History of removal of ovarian cyst History of tympanostomy tube placement Family History Family History Mother Cerebrovascular accident Social History Social History Alcohol intake: never Substance use: never Substance use type: does not use Living arrangements: with family Gender identity (if verbalized by the patient): Female Exam 2 Narrative: GENERAL: Mildly uncomfortable appearing, morbidly obese with BMI of 43.8, non- toxic, in no acute distress. HEAD: Normocephalic, atraumatic. RESPIRATORY: Airway patent, respirations nonlabored. Clear to auscultation bilaterally, no rales, rhonchi, wheezing. CARDIOVASCULAR: Regular rate and rhythm without murmurs, rubs, or gallops. ABDOMINAL: Soft, mild tenderness palpation left upper abdomen, left lateral abdomen, nondistended. Normoactive BS. No significant CVA tenderness to percussion. MUSCULOSKELETAL: Moves all extremities. No gross deformities. SKIN: Warm, dry, normal color. NEURO: A&O X3. Speech clear. Cranial nerves II-XII grossly intact. Steady gait. No ataxic movements. PSYCHIATRIC: Appropriate mood and affect. Normal interaction. Course Vital Signs Vital signs: Vital Signs Temperature 97.2 F L 01/12/25 17:04 Pulse Rate 83 01/12/25 17:04 Respiratory Rate 20 01/12/25 17:04 Blood Pressure 141/92 H 01/12/25 17:04 Pulse Oximetry 100 01/12/25 17:04 Temperature 97.2 F L 01/12/25 17:04 Pulse Rate 69 01/12/25 20:27 Respiratory Rate 15 01/12/25 20:27 Blood Pressure 126/74 01/12/25 20:27 Pulse Oximetry 100 01/12/25 20:27 MDM - Female Genitourinary MDM Narrative Medical decision making narrative: Patient presented to ED with left-sided abdominal/flank pain, vaginal pain. History of PCOS. Vital signs are stable upon arrival. Patient in no acute distress. Laboratory studies with white blood cell count of 11.0. Possibly reactive from vomiting. CMP with evidence of mild dehydration. Bicarb 20. Anion gap of 13. Given fluids. UA with 3+ blood, 3-5 RBC, no evidence of infection. Urine negative. Pelvic ultrasound obtained showing trace fluid next to left ovary, normal Doppler blood flow. No evidence of torsion. CT scan of abd/pelvis obtained: Mild left hydronephrosis secondary to a 3 mm stone at the UVJ. Consistent with clinical picture. Patient updated on lab and imaging findings. She is feeling improved with supportive therapy in the ED. Pain improved after morphine and Toradol. Able to tolerate p.o. intake. Feel she is safe for discharge home with pain/nausea medication, strainer, Flomax. She is in agreement this plan. Feels comfortable going home. Will provide Urology information for follow-up. Given strict return precautions. Patient in agreement. Discharged in stable condition. Medical Records Attestation: I reviewed the patient's medical records. Lab Data Attestation: I reviewed the patient's lab results. 01/12/25 18:54 01/12/25 18:23 Labs: Lab Results 01/12/25 01/12/25 01/12/25 Range/Units 18:23 18:30 18:54 WBC 11.0 H (4.5-10.0) K/mm3 RBC 4.73 (4.2-5.4) M/mm3 Hgb 13.8 (12.0-15.0) g/dL Hct 40.7 (37.0-47.0) % MCV 86.0 (80-100) fl MCH 29.2 (26-34) pg MCHC 33.9 (32-36) g/dl RDW 13.4 (11.5-14.5) % Plt Count 211 (150-375) k/mm3 MPV 8.6 (7.4-10.4) fl Immature Gran % (Auto) 0.5 (0-0.5) % Neut % (Auto) 64.4 (45.5-73.1) % Lymph % (Auto) 21.9 (18.3-44.2) % Love % (Auto) 6.2 (2.6-8.5) % Eos % (Auto) 6.3 H (0-4.4) % Baso % (Auto) 0.7 (0.2-1.2) % Lymph # (Auto) 2.41 (0.9-3.2) K/mm3 Love # (Auto) 0.7 H (0.1-0.6) K/mm3 Eos # (Auto) 0.7 H (0-0.3) K/mm3 Baso # (Auto) 0.1 (0.0-0.1) K/mm3 Abs Immat Gran (auto) 0.06 H (0.00-0.031) K/mm3 Absolute Neuts (auto) 7.1 H (1.3-6.7) K/mm3 Absolute Nucleated RBC 0.000 (0.0-0.012) K/mm3 Nucleated RBC % 0.0 (0.0-0.2) % Sodium 140 (137-145) mmol/L Potassium 3.8 (3.4-5.0) mmol/L Chloride 107 (98-107) mmol/L Carbon Dioxide 20 L (22-30) mmol/L Anion Gap 13 H (4-12) mmol/L BUN 10 (7-17) mg/dL Creatinine 0.75 (0.7-1.0) mg/dL Estim Creat Clear Calc 133 ml/min Estimated GFR > 60 (59 - ) Glucose 96 (65-110) mg/dL Calcium 9.4 (8.4-10.2) mg/dL Total Bilirubin 0.6 (0.2-1.3) mg/dL AST 58 H (14-36) U/L ALT 72 H (6-35) U/L Alkaline Phosphatase 87 (38-126) U/L Total Protein 8.5 H (6.3-8.2) g/dL Albumin 4.8 (3.5-5.1) g/dL Lipase 42 (23-300) U/L Urine Color Yellow (Yellow) Urine Appearance Clear (Clear) Urine pH 5.0 (5.0-9.0) Ur Specific [place] 1.022 (1.001-1.035) Urine Protein Trace (Negative) mg/dL Urine Glucose (UA) Negative (Negative) mg/dL Urine Ketones Trace H (Negative) mg/dL Ur Blood (Man) 3+ H (Negative) Urine Nitrate Negative (Negative) Urine Bilirubin Negative (Negative) Urine Urobilinogen 0.2 (<2.0) mg/dL Leukocyte Esterase Rfl Trace H (Negative) [place]/UL Urine RBC 3-5 H (0-2) /hpf Urine WBC 0-5 (0-3) /hpf Ur Squamous Epith Cells Few (Few) /hpf Urine Bacteria None seen /hpf Urine Casts 0-2 POC Urine HCG, Qual Negative (Negative) Imaging Data Attestation: I personally reviewed and interpreted this imaging study as follows: Radiologist's impression: ITS Impressions Pelvic/Transvag US 01/12/25 18:14 Impression: Normal bilateral ovarian Doppler. No evidence of ovarian torsion. IMPRESSION: Multiple follicles bilaterally. There is trace fluid adjacent to the left ovary. There is no free fluid in the cul-de-sac. Abdomen/Pelvis CT 01/12/25 19:18 IMPRESSION: Mild left hydronephrosis secondary to a 3 mm stone at the UVJ. All CT scans at this facility are performed using low dose modulation techniques as appropriate to perform exam including the following: automated exposure control; use of iterative reconstruction technique; adjustment of the mA and/or kV according to patient size (this includes techniques or standardized protocols for targeted exams where dose is matched to indication/reason for exam). Discharge Plan Discharge Clinical Impression: Calculus of distal left ureter Patient Disposition: Home Condition: Stable Instructions: Antibiotic Form, Kidney Stones (ED), How to Strain Your Urine (ED) Additional Instructions: Take Flomax daily as prescribed. Continue Tylenol and Ibuprofen as needed for pain. [place] as needed for more severe pain. Zofran for nausea. Stay well hydrated. Strain urine to collect stone. Follow-up with urology for further evaluation if needed. Call office make appointment. Return to the ED if you experience worsening or severe pain, unable to keep down food/drink, fevers, uncontrollable nausea/vomiting, unable to urinate, or any other symptoms of concern. Patient Language: Polish Prescriptions: New hydrocodone-acetaminophen 5-325 mg tablet 1 tablet PO Q6H PRN (Reason: pain) Qty: 15 0RF tamsulosin [Flomax] 0.4 mg capsule 0.4 mg PO DAILY Qty: 7 0RF ondansetron 4 mg tablet,disintegrating 4 mg PO Q8H PRN (Reason: nausea and vomiting) Qty: 15 0RF No Action ondansetron 4 mg tablet,disintegrating 4 mg PO Q8H PRN (Reason: nausea and vomiting) Qty: 20 0RF famotidine [Pepcid] 40 mg tablet 40 mg PO DAILY Qty: 14 0RF dicyclomine 10 mg capsule 10 mg PO TID Qty: 20 0RF cephalexin 500 mg capsule 500 mg PO Q12H Qty: 14 0RF ondansetron 4 mg tablet,disintegrating 4 mg PO Q8H PRN (Reason: nausea and vomiting) Qty: 14 0RF metoclopramide HCl [Reglan] 10 mg tablet 10 mg PO Q6H PRN (Reason: nausea and vomiting) Qty: 14 0RF norgestimate-ethinyl estradiol [Tri-Sprintec (28)] 0.18/0.215/0.25 mg-35 mcg (28) tablet nitrofurantoin monohyd/m-cryst [Macrobid] 100 mg capsule 100 mg PO Q12H 5 Days Qty: 10 0RF Rx Instructions: must administer with a meal/food omeprazole 40 mg capsule,delayed release(DR/EC) 40 mg PO DAILY 14 Days Qty: 14 0RF Follow-up/Referrals: Jay Mckeon MD [Physician, Urology] Referral Note: UROLOGY Cody Fountain MD [Physician, Family Practice] Referral Note: PRIMARY CARE PHYSICIAN,EXPERIENTIAL THERAPIST [Primary Care Provider, Internal Medicine] Time of Disposition: 20:12
--- NOTE | 2025-01-12 18:27 | PC.NURSE ---
pt had vasovagal response to IV attempt. pt side rails and yellow clasp applied. pt upright in bed and stable.
[2025-01-12 18:31] LABS: BEDSIDEPREGUCG Negative (Negative)
[2025-01-12 18:41] LABS: Add Urine Microscopic? YES; Appearance Urine Clear (Clear); Glucose Urine UA Negative (Negative); Leukocyte Esterase Ur Trace LEU/UL (Negative); Nitrate Urine Negative (Negative); Non Pathogenic Casts 0-2; Specific Grav Ur 1.022 (1.001-1.035)
[2025-01-12] MEDS: SODIUM CHLORIDE 0.9% IV 1,000 ML 999 ML IV CONT (18:44)
[2025-01-12] MEDS: ONDANSETRON INJ 4 MG/2 ML VIAL IV PUSH ×2 (18:45→19:23)
[2025-01-12] MEDS: MORPHINE SULFATE (*CRX) 4 MG/ML INJ 2 MG IV PUSH (18:45)
[2025-01-12 18:47] LABS: Alanine Aminotransferase 72 U/L (6-35); Albumin Level 4.8 g/dL (3.5-5.1); Alkaline Phosphatase 87 U/L (38-126); Anion Gap 13 mmol/L (4-12); Aspartate Amino Transferase 58 U/L (14-36); Bilirubin,Total 0.6 mg/dL (0.2-1.3); Blood Urea Nitrogen 10 mg/dL (7-17); Calcium 9.4 mg/dL (8.4-10.2); Carbon Dioxide 20 mmol/L (22-30); Chloride 107 mmol/L (98-107); Estimated CRCL calculation 133 ml/min; Estimated Glomerular Filt Rate > 60; Glucose 96 mg/dL (65-110); Lipase 42 U/L (23-300); Potassium 3.8 mmol/L (3.4-5.0); Sodium 140 mmol/L (137-145); Total Protein 8.5 g/dL (6.3-8.2)
[2025-01-12 18:59] VITALS: BP 125/74; PULSE 71; RESP 16; O2SAT 100
[2025-01-12 18:59] LABS: Hematocrit 40.7 % (37.0-47.0); Hemoglobin 13.8 g/dL (12.0-15.0); Immature Granulocyte Percent A 0.5 % (0-0.5); Lymphocytes Absolute Auto 2.41 K/mm3 (0.9-3.2); Mean Corpuscular HGB Conc 33.9 g/dl (32-36); Mean Corpuscular Hemoglobin 29.2 pg (26-34); Mean Corpuscular Volume 86.0 fl (80-100); Nucleated Red Blood Cells Absolute Auto 0.000 K/mm3 (0.0-0.012); Nucleated Red Blood Cells Perc 0.0 % (0.0-0.2); Platelet Count Result 211 k/mm3 (150-375); Red Blood Count 4.73 M/mm3 (4.2-5.4); White Blood Count 11.0 K/mm3 (4.5-10.0)
[2025-01-12] MEDS: MORPHINE SULFATE (*CRX) 4 MG/ML INJ IV PUSH (19:23)
[2025-01-12] MEDS: KETOROLAC 30 MG/ML VIAL (*BKC) IV PUSH (19:26)
[2025-01-12] MEDS: TAMSULOSIN HCL 0.4 MG CAPSULE PO (20:18)
[2025-01-12 20:26] VITALS: BP 126/74; PULSE 69; RESP 15; O2SAT 100
[2025-01-12 20:27] VITALS: BP 126/74; PULSE 69; RESP 15; O2SAT 100
== END 2025-01-12 20:28 | disposition home or self-care (01) ==
PROVIDERS: Emergency Provider Physician Assistant
DX: N13.2 Hydronephrosis with renal and ureteral calculous obstruction (principal); E28.2 Polycystic ovarian syndrome; E66.01 Morbid (severe) obesity due to excess calories; Z68.41 Body mass index [BMI] 40.0-44.9, adult; F41.9 Anxiety disorder, unspecified; F32.A Depression, unspecified
CPT/HCPCS: 36415; 74176; 76830; 76856; 80053; 81001; 81025; 83690; 85025; 96361; 96374; 96375; 96376; 99284; A9270; J1885; J2270; J2405; J7030